=== PATIENT | female | born 1950 | race Caucasian/White ===

== ENCOUNTER 2018-05-10 09:56 | Inpatient (IN) ==
[2018-05-10] MEDS ORDERED: SODIUM CHLORIDE 0.9% 1,000 ML IV STA (11:02)
[2018-05-10] MEDS ORDERED: ONDANSETRON 4 MG/2 ML VIAL IV STA ×2 (11:02→13:21)
[2018-05-10 12:08] LABS: Basophils % 0.3 % (0.0-0.8); Eosinophils % 0.3 % (0.00-10.9); Hematocrit 41.9 VOL% (35.7-47.0); Hemoglobin 14.1 GM/DL (12.0-16.0); Immature Granulocytes % 0.3 %; Immature Granulocytes Absolute 0.02 #; Lymphocytes # 0.7 10*3/uL (1.4-4.0); Lymphocytes % 11.5 % (21.3-54.2); Mean Corpuscular HGB Conc 33.7 GM/DL (32-36); Mean Corpuscular Hemoglobin 29 PG (27-34); Mean Corpuscular Volume 86.6 FL (87-102); Mean Platelet Volume 10.4 FL (9.6-12.0); Monocytes # 0.3 10*3/uL (0.11-0.8); Monocytes % 5.5 % (1.7-12.7); Neutrophils # 5.1 10*3/uL (1.4-7.4); Neutrophils % 82.1 % (38.7-73.9); Platelet Count 198 T/CUMM (130-400); Red Blood Count 4.84 MC/CUMM (3.8-5.5); Red Cell Distribution Width 14.1 % (9.3-17.3); White Blood Count 6.2 T/CUMM (4-12)
[2018-05-10 12:49] LABS: Albumin 3.4 G/DL (3.4-5.0); Bilirubin,Total 0.6 MG/DL (0.2-1.0); Calcium 8.9 MG/DL (8.5-10.1); Osmolality,Calculated 277.8 MOS/KG (273-304); Potassium 4.1 MMOL/L (3.5-5.1); Total Protein 7.3 G/DL (6.4-8.3)
[2018-05-10] MEDS ORDERED: ALUM/MAG/SIMETH/LIDO VISC 1:1 30 ML BOTTLE PO STA (12:55)
[2018-05-10] MEDS ORDERED: PANTOPRAZOLE 40 MG VIAL IV STA (12:56)
[2018-05-10] MEDS ORDERED: MORPHINE 10 MG/1 ML VIAL IV STA (13:21)
[2018-05-10] MEDS ORDERED: LACTULOSE 20 GM/30 ML UDCUP PO PRN (14:30)
[2018-05-10] MEDS ORDERED: DOCUSATE SODIUM 100 MG CAPSULE PO PRN (14:30)
[2018-05-10] MEDS ORDERED: BISACODYL 5 MG TABLET PO PRN (14:30)
[2018-05-10] MEDS ORDERED: BUMETANIDE 1 MG TABLET PO PRN (14:37)
[2018-05-10] MEDS ORDERED: hydrALAZINE 20 MG/1 ML VIAL IV PRN (14:38)
[2018-05-10] MEDS: SODIUM CHLORIDE 0.9% 1,000 ML IV SCH ×2 (15:39→22:22)
[2018-05-10] MEDS: ONDANSETRON 4 MG/2 ML VIAL IV PRN ×2 (18:19→22:34)
[2018-05-10] MEDS: MORPHINE 4 MG/1 ML VIAL IV PRN ×2 (18:20→22:33)
[2018-05-11] MEDS: SODIUM CHLORIDE 0.9% 1,000 ML IV SCH ×2 (06:08→14:00)
[2018-05-11] MEDS: LEVOTHYROXINE 50 MCG TABLET PO SCH (06:31)
[2018-05-11 07:21] LABS: Basophils % 0.4 % (0.0-0.8); Eosinophils # 0.1 10*3/uL (0.0-0.87); Eosinophils % 1.6 % (0.00-10.9); Hematocrit 34.7 VOL% (35.7-47.0); Immature Granulocytes % 0.4 %; Immature Granulocytes Absolute 0.02 #; Lymphocytes # 1.1 10*3/uL (1.4-4.0); Lymphocytes % 19.7 % (21.3-54.2); Mean Corpuscular HGB Conc 33.1 GM/DL (32-36); Mean Corpuscular Hemoglobin 29 PG (27-34); Mean Corpuscular Volume 87.4 FL (87-102); Mean Platelet Volume 11.4 FL (9.6-12.0); Monocytes # 0.4 10*3/uL (0.11-0.8); Monocytes % 6.4 % (1.7-12.7); Neutrophils # 3.9 10*3/uL (1.4-7.4); Neutrophils % 71.5 % (38.7-73.9); Red Blood Count 3.97 MC/CUMM (3.8-5.5); Red Cell Distribution Width 14.4 % (9.3-17.3); White Blood Count 5.5 T/CUMM (4-12)
[2018-05-11 07:25] LABS: Hemoglobin 11.5 GM/DL (12.0-16.0); Platelet Count 112 T/CUMM (130-400)
[2018-05-11 07:40] LABS: Osmolality,Calculated 283.3 MOS/KG (273-304); Potassium 4.1 MMOL/L (3.5-5.1); Risk Ratio 3.02; VLDL CHOLESTEROL 25.4 MG/DL
[2018-05-11] MEDS: ONDANSETRON 4 MG/2 ML VIAL IV PRN (08:26)
[2018-05-11] MEDS: PANTOPRAZOLE 40 MG VIAL IV SCH (08:28)
[2018-05-11] MEDS: ATENOLOL 25 MG TABLET PO SCH (09:47)
[2018-05-11] MEDS: DULoxetine 30 MG CAPSULE PO SCH (10:43)
[2018-05-12] MEDS: SODIUM CHLORIDE 0.9% 1,000 ML IV SCH ×4 (00:12→19:55)
[2018-05-12] MEDS: LEVOTHYROXINE 50 MCG TABLET PO SCH (06:20)
[2018-05-12 07:23] LABS: Basophils % 0.5 % (0.0-0.8); Eosinophils # 0.2 10*3/uL (0.0-0.87); Eosinophils % 4.2 % (0.00-10.9); Hematocrit 36.4 VOL% (35.7-47.0); Hemoglobin 11.8 GM/DL (12.0-16.0); Immature Granulocytes % 0.2 %; Immature Granulocytes Absolute 0.01 #; Lymphocytes # 1.1 10*3/uL (1.4-4.0); Lymphocytes % 27.7 % (21.3-54.2); Mean Corpuscular HGB Conc 32.4 GM/DL (32-36); Mean Corpuscular Hemoglobin 28 PG (27-34); Mean Corpuscular Volume 87.3 FL (87-102); Monocytes # 0.4 10*3/uL (0.11-0.8); Monocytes % 8.9 % (1.7-12.7); Neutrophils # 2.4 10*3/uL (1.4-7.4); Neutrophils % 58.5 % (38.7-73.9); Platelet Count 152 T/CUMM (130-400); Red Blood Count 4.17 MC/CUMM (3.8-5.5); Red Cell Distribution Width 14.2 % (9.3-17.3); White Blood Count 4.1 T/CUMM (4-12)
[2018-05-12 07:54] LABS: Calcium 7.8 MG/DL (8.5-10.1); Potassium 3.8 MMOL/L (3.5-5.1)
[2018-05-12] MEDS: PANTOPRAZOLE 40 MG VIAL IV SCH (08:39)
[2018-05-12] MEDS: metFORMIN 500 MG TABLET PO SCH ×2 (08:45→17:05)
[2018-05-12] MEDS: ENALAPRIL 2.5 MG TABLET PO SCH ×2 (08:46→17:02)
[2018-05-12] MEDS: DULoxetine 30 MG CAPSULE PO SCH ×2 (08:46→17:02)
[2018-05-12] MEDS: ATENOLOL 25 MG TABLET PO SCH ×2 (08:46→17:02)
[2018-05-12] MEDS: MORPHINE 4 MG/1 ML VIAL IV PRN (22:37)
[2018-05-13] MEDS: SODIUM CHLORIDE 0.9% 1,000 ML IV SCH ×5 (03:43→20:44)
[2018-05-13] MEDS: LEVOTHYROXINE 50 MCG TABLET PO SCH (07:28)
[2018-05-13] MEDS: ATENOLOL 25 MG TABLET PO SCH (08:36)
[2018-05-13] MEDS: ENALAPRIL 2.5 MG TABLET PO SCH (08:36)
[2018-05-13] MEDS: DULoxetine 30 MG CAPSULE PO SCH (08:36)
[2018-05-13] MEDS: PANTOPRAZOLE 40 MG VIAL IV SCH (08:37)
[2018-05-13] MEDS: metFORMIN 500 MG TABLET PO SCH (09:41)
[2018-05-13] MEDS ORDERED: diphenhydrAMINE 50 MG/1 ML VIAL IV ONE (12:35)
[2018-05-13] MEDS ORDERED: diphenhydrAMINE 50 MG/1 ML VIAL ONE (12:42)
[2018-05-13] MEDS ORDERED: LIDOCAINE 2% 5 ML VIAL ONE (12:55)
[2018-05-13] MEDS ORDERED: PROPOFOL 200 MG/20 ML VIAL IV ONE (12:55)
[2018-05-13] MEDS ORDERED: ONDANSETRON 4 MG/2 ML VIAL ONE (12:55)
[2018-05-13] MEDS ORDERED: PROMETHAZINE 25 MG/1 ML VIAL IM PRN (14:31)
[2018-05-14] MEDS: SODIUM CHLORIDE 0.9% 1,000 ML IV SCH (05:02)
[2018-05-14] MEDS: LEVOTHYROXINE 50 MCG TABLET PO SCH ×2 (05:05→07:05)
[2018-05-14 07:54] VITALS: BP 153/73
[2018-05-14] MEDS: PANTOPRAZOLE 40 MG VIAL IV SCH (08:15)
[2018-05-14] MEDS: DULoxetine 30 MG CAPSULE PO SCH (08:15)
[2018-05-14] MEDS: ATENOLOL 25 MG TABLET PO SCH (08:15)
[2018-05-14] MEDS: metFORMIN 500 MG TABLET PO SCH (08:15)
[2018-05-14] MEDS: ENALAPRIL 2.5 MG TABLET PO SCH (08:16)
== END 2018-05-14 10:31 | disposition home or self-care (01) | DRG 384 ==
LOC: N.ED 09:56 → N.EDINP 13:50 → N.2E 15:19
PROVIDERS: ADMIT Internal Medicine; ATTEND Internal Medicine

== ENCOUNTER 2022-06-01 13:52 | Observation (INO) ==
[2022-06-01 19:31] LABS: Alanine Aminotransferase 30 U/L (13-56); Albumin 3.3 G/DL (3.4-5.0); Alkaline Phosphatase 81 U/L (45-117); Aspartate Amino Transferase 13 U/L (0-37); Blood Urea Nitrogen 11 MG/DL (7-18); Calcium 9.9 MG/DL (8.5-10.1); Carbon Dioxide 30 MMOL/L (21-32); Chloride 103 MMOL/L (98-107); Glucose 208 MG/DL (74-106); Osmolality,Calculated 279.7 MOS/KG (273-304); Potassium 4.4 MMOL/L (3.5-5.1); Sodium 138 MMOL/L (136-145); Total Protein 7.1 G/DL (6.4-8.2)
[2022-06-01 21:56] LABS: Basophils % 0.8 % (0.0-0.8); Eosinophils # 0.2 10*3/uL (0.0-0.87); Eosinophils % 3.8 % (0.00-10.9); Hematocrit 40.2 VOL% (35.7-47.0); Immature Granulocytes % 0.6 %; Immature Granulocytes Absolute 0.03 #; Lymphocytes % 19.2 % (21.3-54.2); Mean Corpuscular HGB Conc 32.3 GM/DL (32-36); Mean Corpuscular Volume 88.5 FL (87-102); Mean Platelet Volume 9.3 FL (9.6-12.0); Monocytes # 0.5 10*3/uL (0.11-0.8); Monocytes % 9.9 % (1.7-12.7); Neutrophils % 65.7 % (38.7-73.9); Platelet Count 228 T/CUMM (130-400); Red Blood Count 4.54 MC/CUMM (3.8-5.5); Red Cell Distribution Width 15.3 % (9.3-17.3); White Blood Count 4.9 T/CUMM (4-12)
[2022-06-01 22:07] LABS: PT Patient Result 11.5 SECS (10.5-12.0)
[2022-06-01] MEDS ORDERED: SODIUM CHLORIDE 0.9% 1,000 ML IV STA (22:42)
[2022-06-01 22:54] LABS: Arterial Base Excess iSTAT 3 MMOL/L (-2.5-2.5); Arterial Bicarbonate iSTAT 29.1 MMOL/L (20-26); Arterial O2 Saturation iSTAT 92 % (95-100); Arterial PCO2 iSTAT 50 MM HG (35-48); Arterial PO2 iSTAT 68 MM HG (80-95); Arterial Total CO2 iSTAT 31 MMO/L (23-27)
[2022-06-02] MEDS ORDERED: hydrALAZINE 20 MG/1 ML VIAL IV STA (00:31)
[2022-06-02] MEDS ORDERED: GLUCAGON 1 MG VIAL IM PRN (01:53)
[2022-06-02] MEDS ORDERED: SODIUM CHLORIDE 0.9% 1,000 ML IV SCH (02:00)
[2022-06-02] MEDS ORDERED: FLUTICASONE 50 MCG NASAL SPRAY 16 GM BOTTLE BOTH NARES PRN (02:05)
[2022-06-02] MEDS ORDERED: DEXTROSE 10% 250 ML BAG IV PRN (02:07)
[2022-06-02 03:17] LABS: Bacteria,Urine Occasional /HPF (Few); Mucus,Urine Occasional /LPF (Occasional); RBC,Urine <1 /HPF (0-4); Squamous Epithelial Cell,Urine Occasional /HPF (0-10)
[2022-06-02 03:18] LABS: Urine Appearance Slightly Hazy (Clear); Urine Color Yellow (Yellow)
[2022-06-02 03:19] LABS: Bilirubin,Urine Negative (Negative); Blood, Urine Negative (Negative); Glucose,Urine (UA) 100 mg/dL (Negative); Ketones,Urine Negative (Negative); Nitrite,Urine Negative (Negative); Protein,Urine Negative (Negative); Urine Urobilinogen 0.2 eU/dL (<2.0)
[2022-06-02] MEDS: LEVOTHYROXINE 112 MCG TABLET PO SCH (05:40)
[2022-06-02 06:08] LABS: Basophils % 0.5 % (0.0-0.8); Eosinophils # 0.2 10*3/uL (0.0-0.87); Eosinophils % 3.7 % (0.00-10.9); Hematocrit 40.1 VOL% (35.7-47.0); Hemoglobin 13.1 GM/DL (12.0-16.0); Immature Granulocytes % 0.3 %; Immature Granulocytes Absolute 0.02 #; Lymphocytes # 0.9 10*3/uL (1.4-4.0); Lymphocytes % 15.3 % (21.3-54.2); Mean Corpuscular HGB Conc 32.7 GM/DL (32-36); Mean Corpuscular Volume 87.6 FL (87-102); Mean Platelet Volume 10.2 FL (9.6-12.0); Monocytes # 0.5 10*3/uL (0.11-0.8); Monocytes % 8.7 % (1.7-12.7); Neutrophils % 71.5 % (38.7-73.9); Platelet Count 224 T/CUMM (130-400); Red Blood Count 4.58 MC/CUMM (3.8-5.5); Red Cell Distribution Width 15.3 % (9.3-17.3)
[2022-06-02 06:16] LABS: Platelet Estimate Normal
[2022-06-02 06:28] LABS: Albumin 3.2 G/DL (3.4-5.0); Bilirubin,Total 0.5 MG/DL (0.20-1.00); Calcium 9.4 MG/DL (8.5-10.1); Osmolality,Calculated 275.1 MOS/KG (273-304); Potassium 4.1 MMOL/L (3.5-5.1); Thyroid Stimulating Hormone 3.93 uIU/ml (0.358-3.74); Total Protein 7.3 G/DL (6.4-8.2)
[2022-06-02] MEDS: MONTELUKAST 10 MG TABLET PO SCH (09:07)
[2022-06-02] MEDS: PANTOPRAZOLE 40 MG TABLET PO SCH (09:07)
[2022-06-02] MEDS: amLODIPine 5 MG TABLET PO SCH (09:07)
[2022-06-02] MEDS: LOSARTAN 50 MG TABLET PO SCH (09:07)
[2022-06-02] MEDS: ASPIRIN EC 325 MG TABLET PO SCH (09:07)
[2022-06-02] MEDS: INSULIN LISPRO 100 UNIT/ML SUBCUT SCH ×4 (09:08→22:11)
[2022-06-02] MEDS: DULoxetine 30 MG CAPSULE PO SCH ×2 (09:08→22:10)
[2022-06-02] MEDS: atenoloL 25 MG TABLET PO SCH (09:08)
[2022-06-02] MEDS: CHOLECALCIFEROL 5,000 UNIT TABLET PO SCH (09:08)
[2022-06-02] MEDS: ENOXAPARIN 40 MG/0.4 ML SYRINGE SUBCUT SCH (09:09)
[2022-06-02] MEDS: DAPAGLIFLOZIN 5 MG TABLET PO SCH (12:32)
[2022-06-03 05:25] LABS: Basophils % 0.2 % (0.0-0.8); Eosinophils # 0.2 10*3/uL (0.0-0.87); Eosinophils % 4.3 % (0.00-10.9); Hematocrit 35.8 VOL% (35.7-47.0); Hemoglobin 11.4 GM/DL (12.0-16.0); Immature Granulocytes % 0.4 %; Immature Granulocytes Absolute 0.02 #; Lymphocytes # 0.9 10*3/uL (1.4-4.0); Lymphocytes % 17.5 % (21.3-54.2); Mean Corpuscular HGB Conc 31.8 GM/DL (32-36); Mean Corpuscular Volume 89.1 FL (87-102); Monocytes # 0.5 10*3/uL (0.11-0.8); Monocytes % 11.1 % (1.7-12.7); Neutrophils % 66.5 % (38.7-73.9); Platelet Count 185 T/CUMM (130-400); Red Blood Count 4.02 MC/CUMM (3.8-5.5); Red Cell Distribution Width 15.1 % (9.3-17.3); White Blood Count 4.9 T/CUMM (4-12)
[2022-06-03 05:37] LABS: Calcium 8.9 MG/DL (8.5-10.1); Osmolality,Calculated 280.4 MOS/KG (273-304)
[2022-06-03] MEDS: LEVOTHYROXINE 112 MCG TABLET PO SCH (06:25)
[2022-06-03 07:45] LABS: Platelet Estimate Normal
[2022-06-03] MEDS: INSULIN LISPRO 100 UNIT/ML SUBCUT SCH ×4 (09:56→22:05)
[2022-06-03] MEDS: amLODIPine 5 MG TABLET PO SCH (09:57)
[2022-06-03] MEDS: DULoxetine 30 MG CAPSULE PO SCH ×2 (09:57→22:05)
[2022-06-03] MEDS: atenoloL 25 MG TABLET PO SCH (09:57)
[2022-06-03] MEDS: PANTOPRAZOLE 40 MG TABLET PO SCH (09:57)
[2022-06-03] MEDS: CHOLECALCIFEROL 5,000 UNIT TABLET PO SCH (09:57)
[2022-06-03] MEDS: LOSARTAN 50 MG TABLET PO SCH (09:57)
[2022-06-03] MEDS: ASPIRIN EC 325 MG TABLET PO SCH (09:57)
[2022-06-03] MEDS: MONTELUKAST 10 MG TABLET PO SCH (09:57)
[2022-06-03] MEDS: ENOXAPARIN 40 MG/0.4 ML SYRINGE SUBCUT SCH (09:58)
[2022-06-03] MEDS: DAPAGLIFLOZIN 5 MG TABLET PO SCH (09:58)
[2022-06-03 11:05] LABS: Arterial Base Excess iSTAT 6 MMOL/L (-2.5-2.5); Arterial O2 Saturation iSTAT 96 % (95-100); Arterial PCO2 iSTAT 47 MM HG (35-48); Arterial PO2 iSTAT 78 MM HG (80-95); Arterial Total CO2 iSTAT 32 MMO/L (23-27); Arterial pH iSTAT 7.426 (7.35-7.45)
[2022-06-04] MEDS: LEVOTHYROXINE 112 MCG TABLET PO SCH (05:45)
[2022-06-04] MEDS ORDERED: amLODIPine 5 MG TABLET PO SCH (09:00)
[2022-06-04] MEDS: MONTELUKAST 10 MG TABLET PO SCH (09:48)
[2022-06-04] MEDS: DULoxetine 30 MG CAPSULE PO SCH (09:48)
[2022-06-04] MEDS: DAPAGLIFLOZIN 5 MG TABLET PO SCH (09:48)
[2022-06-04] MEDS: ENOXAPARIN 40 MG/0.4 ML SYRINGE SUBCUT SCH (09:48)
[2022-06-04] MEDS: PANTOPRAZOLE 40 MG TABLET PO SCH (09:48)
[2022-06-04] MEDS: INSULIN LISPRO 100 UNIT/ML SUBCUT SCH ×2 (09:48→12:05)
[2022-06-04] MEDS: LOSARTAN 50 MG TABLET PO SCH (09:49)
[2022-06-04] MEDS: atenoloL 25 MG TABLET PO SCH (09:49)
[2022-06-04] MEDS: CHOLECALCIFEROL 5,000 UNIT TABLET PO SCH (09:49)
[2022-06-04] MEDS: ASPIRIN EC 325 MG TABLET PO SCH (09:49)
[2022-06-04 12:17] VITALS: BP 145/60
== END 2022-06-04 15:50 | disposition home or self-care (01) ==
LOC: N.EDINP 13:52 → N.ED 13:52 → SUATTDRO 06-02 01:53 → N.5E 06-02 04:48
PROVIDERS: ADMIT Internal Medicine; ATTEND Internal Medicine